=== PATIENT | male | born 1975 | race Caucasian/White ===

== ENCOUNTER 2020-03-30 23:50 | Inpatient (IN) | payer BC, MEDICAID ==
[~2020-03-30] VITALS: Ht 175.3 cm; Wt 84.4 kg
--- NOTE | 2020-03-31 00:20 | NUR ---
Dr. Terrazas at bedside for MSE.
--- NOTE | 2020-03-31 00:52 | NUR ---
Xray at bedside.
[2020-03-31 00:53] LABS: BASOPHILS # (AUTO) 0.1 K/uL (0.0-8.0); BASOPHILS % (AUTO) 0.8 % (0.0-2.0); EOSINOPHILS # (AUTO) 0.1 K/uL (0.0-0.7); HEMATOCRIT 40.1 % (36.7-47.1); HEMOGLOBIN 13.2 g/dL (12.5-16.3); LYMPHOCYTES # (AUTO) 2.5 K/uL (20.0-40.0); LYMPHOCYTES % (AUTO) 27.2 % (20.5-51.5); MEAN CORPUSCULAR HGB CONC 33 g/dL (32.5-36.3); MEAN CORPUSCULAR VOLUME 82.4 fL (73.0-96.2); MONOCYTES # (AUTO) 1.3 K/uL (2.0-10.0); MONOCYTES % (AUTO) 14.4 % (0.0-11.0); NEUTROPHILS # (AUTO) 5.2 K/uL (1.8-8.9); NEUTROPHILS % (AUTO) 56.6 % (38.5-71.5); PLATELET COUNT (AUTO) 186 K/uL (152-348); RED BLOOD CELL COUNT(AUTO) 4.87 MIL/uL (4.06-5.63); WHITE BLOOD COUNT (AUTO) 9.2 K/uL (3.6-10.2)
[2020-03-31 00:56] LABS: CREATININE 1.5 mg/dL (0.6-1.3); POTASSIUM 2.9 mmol/L (3.5-5.1)
[2020-03-31 01:09] LABS: BILIRUBIN,DIRECT 0.8 mg/dL (0.0-0.2); BILIRUBIN,TOTAL 1.5 mg/dL (0.2-1.0); TOTAL PROTEIN, SERUM 6.7 g/dL (6.4-8.2)
[2020-03-31] MEDS ORDERED: BUME2TAB7 PO (01:10)
[2020-03-31] MEDS ORDERED: APIX5TAB PO (01:10)
[2020-03-31] MEDS ORDERED: METO5TAB7 PO (01:10)
[2020-03-31] MEDS ORDERED: EMTR1TAB13 PO (01:10)
[2020-03-31] MEDS ORDERED: potassium PO (01:10)
[2020-03-31] MEDS ORDERED: DOLU50TA PO (01:10)
[2020-03-31] MEDS ORDERED: LISI2.5T2 PO (01:10)
[2020-03-31] MEDS ORDERED: FUROSEMIDE 40 MG/4 ML VIAL IV ONE ×2 (01:30→08:00)
[2020-03-31] MEDS ORDERED: ASPIRIN 325 MG TABLET PO ONE (01:30)
[2020-03-31] MEDS ORDERED: FUROSEMIDE 40 MG/4 ML VIAL ONE (01:37)
[2020-03-31] MEDS ORDERED: ASPIRIN 325 MG TABLET ONE (01:37)
[2020-03-31] MEDS ORDERED: CEFTRIAXONE /D5W 50ML IVPB **ER PYXIS IV ONE (01:44)
[2020-03-31] MEDS ORDERED: CEFTRIAXONE 1 G in IV DEXTROSE 5% 50 ML IV ONE (01:45)
[2020-03-31] MEDS ORDERED: AZITHROMYCIN 500MG/ D5W 250ML IVPB **ER PYXIS ONLY IV ONE (01:45)
[2020-03-31] MEDS ORDERED: AZITHROMYCIN IV 500 MG in IV DEXTROSE 5% 250 ML IV ONE (01:45)
[2020-03-31] MEDS ORDERED: MORPHINE SULFATE 4 MG/1 ML DISP.SYRIN IV ONE (02:15)
[2020-03-31] MEDS ORDERED: POTASSIUM CHLORIDE 20 MEQ TAB.PRT.SR PO ONE ×2 (02:15→17:00)
[2020-03-31] MEDS ORDERED: MAGNESIUM SULFATE/D5W 100 ML IV SCH (02:15)
--- NOTE | 2020-03-31 02:59 | NUR ---
Called [facility] to page Dayanna Napier NP.
--- NOTE | 2020-03-31 03:04 | NUR ---
Dr. Terrazas on panel call with Dayanna Napier. Patient accepted for admission to [facility], diagnosis: CHF exacerbation.
[2020-03-31] MEDS ORDERED: Z GUARD REMEDY PASTE 57 GM TUBE TOP PRN (03:15)
[2020-03-31] MEDS ORDERED: MAGNESIUM HYDROXIDE 30 ML LIQUID UDC PO PRN (03:15)
[2020-03-31] MEDS ORDERED: ACETAMINOPHEN 325 MG TABLET PO PRN (03:15)
[2020-03-31] MEDS ORDERED: ONDANSETRON 4 MG/2 ML VIAL IV PRN (03:15)
--- NOTE | 2020-03-31 03:56 | NUR ---
Report given to Ira SYKES Tele.
--- NOTE | 2020-03-31 04:43 | NUR ---
Received pt from ER via wheel chair. Pt can ambulate WNL. AOx4, no acute distress noted, on RA with tele monitor placed NSR.
[2020-03-31 04:57] VITALS: BP 101/83
--- NOTE | 2020-03-31 06:53 | NUR ---
End of Shift: Patient slept intermittently throughout the night with episodes of coughing. Patient needs were met and kept comfortable. Bed is low & locked, side rails are up x2, call light within reach. Will endorse to the AM shift nurse.
[2020-03-31 08:07] VITALS: BP 102/81
[2020-03-31] MEDS: LISINOPRIL 5 MG TABLET PO SCH (08:49)
[2020-03-31] MEDS ORDERED: Emtricitabine/Tenofov Alafenam (Descovy 200-25 mg Tablet PO SCH (09:00)
[2020-03-31] MEDS: APIXABAN 2.5 MG TABLET PO SCH ×2 (09:01→21:08)
[2020-03-31 09:22] LABS: ETHANOL < 3 MG/DL (0-0)
[2020-03-31 09:29] LABS: ACETAMINOPHEN < 2.0 ug/mL (10-30)
[2020-03-31 11:13] VITALS: BP 92/70
--- NOTE | 2020-03-31 14:00 | NUR ---
PER PHARMACY PATIENTS HIV MEDS ARE NON FORMULARY SO I SPOKE WITH THE PATIENT TO SEE IF HE WAS ABLE TO BRING HIS OWN MEDS BUT HE STATED THAT HE LIVES ALONE AND NOT ABLE AND ALSO THAT HIS MEDS ARE LOCKED UP IN THE SAFE AND NO ONE IS ABLE TO GET IT PHARMACIST KATIE AND DR STEVENSON NOTIFIED WITH NO NEW ORDERS AT THIS TIME.
--- NOTE | 2020-03-31 14:30 | NUR ---
PATIENT COMPLAINING OF SEVERE COUGH EPISODES STATED HURTS HIM IN THE BACK WHEN HE COUGHS SO I CALLED DR VAZQUEZ SPOKE WITH HIM WITH ORDERS FOR ROUTINE TESSALON PEARLS AND NOTED.
[2020-03-31] MEDS ORDERED: BENZONATATE 100 MG CAPSULE PO PRN (14:45)
[2020-03-31 15:13] VITALS: BP 105/77
--- NOTE | 2020-03-31 15:58 | NUR ---
ECHO PER MID LEVEL PRACTITIONER IS 10-20 PERCENT EF CALLED THE [facility] SPOKE WITH TRIPP LEFT A MESSAGE FOR DR DEMPSEY AWAITING FOR RETURN CALL
--- NOTE | 2020-03-31 16:12 | NUR ---
DR DEMPSEY RETURNED CALL AND STATED THAT HE IS AWARE THAT ECHO ON THIS PATIENT IS 10-15 PERCENT EF WITH NO NEW ORDERS AT THIS TIME.
--- NOTE | 2020-03-31 18:00 | NUR ---
RESTING IN BED COUGHING SIGNIFICANTLY SUBSIDING TELE REMAINS TACHY AT THIS TIME WILL CONTINUE TO OBSERVE.
--- NOTE | 2020-03-31 20:00 | NUR ---
Received pt in bed, asleep, easily arousable to name, able to make needs known. No s/s of respiratory distress, no pain or discomfort reported. IV access on right forearm intact and patent. On oxygen at 1LPM via NC saturating at 99%. Safety measures initiated, call bel within reach, will continue to monitor.
[2020-03-31 20:04] VITALS: BP 103/77
[2020-03-31] MEDS: FUROSEMIDE 40 MG/4 ML VIAL IV SCH (21:06)
[2020-03-31] MEDS: BENZONATATE 100 MG CAPSULE PO SCH (21:06)
[2020-04-01 00:15] VITALS: BP 97/69
[2020-04-01 04:15] VITALS: BP 12/75
[2020-04-01] MEDS: BENZONATATE 100 MG CAPSULE PO SCH ×3 (05:59→21:37)
--- NOTE | 2020-04-01 06:21 | NUR ---
Pt slept through the night, no s/s of acute respiratory distress, no pain or discomfort noted. due medications given and tolerated well. safety measures in place. will endorse to incoming nurse.
--- NOTE | 2020-04-01 06:22 | NUR ---
Sinus rhythm with PVC's on tele at 96/min.
[2020-04-01 06:30] LABS: BASOPHILS # (AUTO) 0.1 K/uL (0.0-8.0); BASOPHILS % (AUTO) 0.8 % (0.0-2.0); EOSINOPHILS # (AUTO) 0.4 K/uL (0.0-0.7); EOSINOPHILS % (AUTO) 4.9 % (0.0-7.0); HEMATOCRIT 42.2 % (36.7-47.1); HEMOGLOBIN 13.7 g/dL (12.5-16.3); LYMPHOCYTES # (AUTO) 2.1 K/uL (20.0-40.0); LYMPHOCYTES % (AUTO) 29.1 % (20.5-51.5); MEAN CORPUSCULAR HEMOGLOBIN 27.2 uug (23.8-33.4); MEAN CORPUSCULAR HGB CONC 33 g/dL (32.5-36.3); MEAN CORPUSCULAR VOLUME 83.7 fL (73.0-96.2); MONOCYTES % (AUTO) 13.6 % (0.0-11.0); NEUTROPHILS # (AUTO) 3.8 K/uL (1.8-8.9); NEUTROPHILS % (AUTO) 51.6 % (38.5-71.5); PLATELET COUNT (AUTO) 193 K/uL (152-348); RED BLOOD CELL COUNT(AUTO) 5.04 MIL/uL (4.06-5.63); WHITE BLOOD COUNT (AUTO) 7.3 K/uL (3.6-10.2)
[2020-04-01 06:59] LABS: BILIRUBIN,TOTAL 1.3 mg/dL (0.2-1.0); CREATININE 1.7 mg/dL (0.6-1.3); MAGNESIUM 2.2 mg/dL (1.8-2.4); PHOSPHOROUS 3.8 mg/dL (2.5-4.9); POTASSIUM 3.3 mmol/L (3.5-5.1); TOTAL PROTEIN, SERUM 6.7 g/dL (6.4-8.2)
--- NOTE | 2020-04-01 07:20 | NUR ---
PATIENT RECEIVED IN BED WITH EYES CLOSED AND WITH NO APPARENT DISTRESS. PATIENT ON 1L O2 VIA NC WITH NO SOB AND NO COUGH AT THIS TIME. REMAIN ON TELEMETRY WITH [facility]. CALL LIGHTS AND PERSONAL BELONGINGS ARE WITHIN EASY REACH. WILL CONTINUE TO OBSERVE AND PROVIDE COMFORT.
[2020-04-01] MEDS: FUROSEMIDE 40 MG/4 ML VIAL IV SCH ×2 (08:28→20:29)
[2020-04-01] MEDS: LISINOPRIL 5 MG TABLET PO SCH (08:29)
[2020-04-01] MEDS: APIXABAN 2.5 MG TABLET PO SCH ×2 (08:30→20:30)
[2020-04-01] MEDS ORDERED: POTASSIUM CHLORIDE 20 MEQ TAB.PRT.SR PO ONE (10:30)
--- NOTE | 2020-04-01 11:07 | NUR ---
POTASSIUM LEVEL IS 3.3 REVIEWED BY BRII MORAN RADIO DIVISION OFFICER WITH NEW ORDERS AND NOTED
[2020-04-01 12:00] VITALS: BP 94/73
--- NOTE | 2020-04-01 12:09 | NUR ---
[facility] MEDICAL PROVIDER WAS HERE AT BEDSIDE AND DISCUSSED THE PLAN OF CARE WITH THE PATIENT WITH NO NEW ORDERS AT THIS TIME.
--- NOTE | 2020-04-01 15:35 | NUR ---
DR JERRY [employer] WEAP[employer] TECHNICIAN HERE AND SEEN PATIENT AWARE OF LOW BLOOD PRESSURE AND PATIENT IS ON PRINIVIL WITH PARAMETERS AND NOTED HE ALSO STATED NO NEW ORDERS FOR PATIENTS LOW EJECTION FRACTION
--- NOTE | 2020-04-01 15:41 | NUR ---
PATIENT INSTRUCTED ON NEED FOR URINE SAMPLE AND SPECIMEN CUP PROVIDED AND HE EXPRESSED UNDERSTANDING.
[2020-04-01 16:08] VITALS: BP 115/74
[2020-04-01 16:28] LABS: *AMPHETAMINE, URINE POSITIVE (NEGATIVE); *CANNABINOID, URINE NEGATIVE (NEGATIVE); *COCCAINE, URINE NEGATIVE (NEGATIVE); *OPIATE, URINE POSITIVE (NEGATIVE); *PHENCYCLIDINE SCREEN,URINE NEGATIVE (NEGATIVE)
[2020-04-01] MEDS: HYDROCODONE/APAP 5-325MG TABLET PO PRN ×2 (17:20→21:37)
--- NOTE | 2020-04-01 18:37 | NUR ---
PATIENT COMPLAINED OF LEFT RIB PAIN WHICH IS CONSISTENT WITH HIS PAIN WHEN HE COUGHS. CURRENTLY ON TESSALON PEARLS. NORCO GIVEN FOR PAIN AND EFFECTIVE. PATIENT IS RESTING AT THIS TIME.
[2020-04-01 20:00] VITALS: BP 105/77
[2020-04-01 20:03] VITALS: BP 106/79
--- NOTE | 2020-04-01 23:00 | NUR ---
Pt seen by Seun SALEH; needs attended; c/o pain [place] given.
[2020-04-02] VITALS: BP 108/81
[2020-04-02 04:28] VITALS: BP 106/79
[2020-04-02] MEDS: BENZONATATE 100 MG CAPSULE PO SCH ×3 (05:47→21:10)
[2020-04-02] MEDS: HYDROCODONE/APAP 5-325MG TABLET PO PRN (05:48)
--- NOTE | 2020-04-02 05:57 | NUR ---
pt rested well in between care; no acute distressasked for pain meds and gave e [place] but eventually refused;
--- NOTE | 2020-04-02 06:01 | NUR ---
unable to weigh bed scale not working; standing scale not working.
[2020-04-02 06:27] LABS: BASOPHILS % (AUTO) 0.8 % (0.0-2.0); EOSINOPHILS # (AUTO) 0.4 K/uL (0.0-0.7); EOSINOPHILS % (AUTO) 6.8 % (0.0-7.0); HEMATOCRIT 46.9 % (36.7-47.1); HEMOGLOBIN 15.6 g/dL (12.5-16.3); LYMPHOCYTES # (AUTO) 1.9 K/uL (20.0-40.0); LYMPHOCYTES % (AUTO) 30.4 % (20.5-51.5); MEAN CORPUSCULAR HEMOGLOBIN 27.5 uug (23.8-33.4); MEAN CORPUSCULAR HGB CONC 33 g/dL (32.5-36.3); MONOCYTES # (AUTO) 0.9 K/uL (2.0-10.0); MONOCYTES % (AUTO) 14.3 % (0.0-11.0); NEUTROPHILS % (AUTO) 47.7 % (38.5-71.5); PLATELET COUNT (AUTO) 233 K/uL (152-348); RED BLOOD CELL COUNT(AUTO) 5.65 MIL/uL (4.06-5.63); WHITE BLOOD COUNT (AUTO) 6.3 K/uL (3.6-10.2)
[2020-04-02 07:05] LABS: CREATININE 1.7 mg/dL (0.6-1.3); MAGNESIUM 2.4 mg/dL (1.8-2.4); PHOSPHOROUS 4.1 mg/dL (2.5-4.9); POTASSIUM 3.9 mmol/L (3.5-5.1)
[2020-04-02] MEDS: MORPHINE SULFATE 2 MG/1 ML DISP.SYRIN IV PRN (08:46)
[2020-04-02] MEDS: LISINOPRIL 5 MG TABLET PO SCH (08:50)
[2020-04-02] MEDS: APIXABAN 2.5 MG TABLET PO SCH ×2 (08:52→20:48)
--- NOTE | 2020-04-02 14:00 | NUR ---
PATIENT IS C/O SLIGHT SOB. O2 ADMINISTERED AT 2L VIA NC.
[2020-04-02 16:29] VITALS: BP 95/66
--- NOTE | 2020-04-02 16:30 | NUR ---
PATIENT RESTING IN BED WITH EYES CLOSED. DENIES CHEST PAIN AND O2 SAT 97% AT 2L VIA NC. SR ON MONITOR. WILL CONTINUE TO OBSERVE.
[2020-04-02 20:00] VITALS: BP 99/75
[2020-04-03] VITALS: BP 98/75
[2020-04-03 03:06] LABS: *BASOS 1 % (Not Estab.); *BASOS,ABSOLUTE 0.1 x10E3/uL (0.0-0.2); *EOS 6 % (Not Estab.); *EOS ABSOLUTE 0.4 x10E3/uL (0.0-0.4); *HCT 45.8 % (37.5-51.0); *HGB 15.1 g/dL (13.0-17.7); *IMMATURE GRANULOCYTES 1 % (Not Estab.); *LYMPHOCYTES 33 % (Not Estab.); *LYMPHOCYTES ABSOLUTE 2.2 x10E3/uL (0.7-3.1); *MCH 27.1 pg (26.6-33.0); *MCV 82 fL (79-97); *MONOCYTES 15 % (Not Estab.); *NEUTROPHILS 44 % (Not Estab.); *PLT 255 x10E3/uL (150-450); *RBC 5.57 x10E6/uL (4.14-5.80); *RDW 18.4 % (11.6-15.4); *WBC 6.6 x10E3/uL (3.4-10.8)
[2020-04-03 04:24] VITALS: BP 101/80
[2020-04-03] MEDS: BENZONATATE 100 MG CAPSULE PO SCH ×2 (05:45→08:43)
[2020-04-03] MEDS: MORPHINE SULFATE 2 MG/1 ML DISP.SYRIN IV PRN (06:24)
--- NOTE | 2020-04-03 06:50 | NUR ---
Pt stable throughout the shift. On 2L NC saturating at 97%. Pt c/o of slight chest pain, PRN 1mg morphine was given. Will continue to monitor. Safety measures in place. Call light within reach. Will endorse to oncoming nurse.
--- NOTE | 2020-04-03 08:00 | NUR ---
AWAKE ALERT AND VERBALLY RESPONSIVE NITHIN PAIN OR SOB SATURATING 98% RA. SR ON MONITOR
[2020-04-03 08:41] LABS: BASOPHILS % (AUTO) 0.7 % (0.0-2.0); EOSINOPHILS # (AUTO) 0.3 K/uL (0.0-0.7); HEMATOCRIT 44.4 % (36.7-47.1); HEMOGLOBIN 14.9 g/dL (12.5-16.3); LYMPHOCYTES # (AUTO) 1.9 K/uL (20.0-40.0); LYMPHOCYTES % (AUTO) 28.6 % (20.5-51.5); MEAN CORPUSCULAR HEMOGLOBIN 27.9 uug (23.8-33.4); MEAN CORPUSCULAR HGB CONC 34 g/dL (32.5-36.3); MEAN CORPUSCULAR VOLUME 83.3 fL (73.0-96.2); MONOCYTES # (AUTO) 0.9 K/uL (2.0-10.0); MONOCYTES % (AUTO) 13.7 % (0.0-11.0); NEUTROPHILS # (AUTO) 3.5 K/uL (1.8-8.9); PLATELET COUNT (AUTO) 280 K/uL (152-348); RED BLOOD CELL COUNT(AUTO) 5.33 MIL/uL (4.06-5.63); WHITE BLOOD COUNT (AUTO) 6.7 K/uL (3.6-10.2)
[2020-04-03] MEDS: LISINOPRIL 5 MG TABLET PO SCH (08:42)
[2020-04-03 08:43] LABS: CREATININE 1.4 mg/dL (0.6-1.3); PHOSPHOROUS 3.3 mg/dL (2.5-4.9); POTASSIUM 3.5 mmol/L (3.5-5.1)
[2020-04-03] MEDS: APIXABAN 2.5 MG TABLET PO SCH (08:45)
[2020-04-03 08:48] LABS: MAGNESIUM 2.3 mg/dL (1.8-2.4)
[2020-04-03 11:56] VITALS: BP 101/80
--- NOTE | 2020-04-03 12:00 | NUR ---
SEEN BY HOSPITALIST AND RESIDENCE LIFE COORDINATOR PLAN DISCHARGE TODAY PENDING LIFE VEST DELIVERY FOR HOME
[2020-04-03 13:06] LABS: *HELPER T-LYMPH MARKR(CD4)ABSO 926 /uL (359-1519); *HELPER T-LYNPH MARKER CD4)% 42.1 % (30.8-58.5)
--- NOTE | 2020-04-03 13:10 | NUR ---
Account Assistant note: This SW met with the patient today. Patient is a 45 year old male, alert, oriented x 4, receptive to meeting with this SW. Patient was admitted to the hospital on 03/31 with dx of CHF. Patient has a history of meth use, and per patient's medical records, patient tested positive for meth during this hospitalization. During this interview with this SW, patient denied current use of meth, and stated that his drug use was a long time ago. Patient lives alone in an apartment, [address] [place] [address]. Patient is independent with ADL's. Patient is currently unemployed, and stated that his family helps him out financially. Patient has [employer]. SW explored patient's psychosocial needs, and patient stated that he would like information on cardiologists. SW explained to the patient that based on his insurance, patient would need to see his PCP first, who would then submit an authorization request to his insurance who would refer him to cafeteria associate. Patient expressed understanding. Patient stated he did not need any other supportive resources at this time, and that he was waiting for his life vest so he can be discharged home. At this time, there are no additional SS interventions needed. SW will remain available to patient, as needed.
--- NOTE | 2020-04-03 16:34 | NUR ---
discharged home stable with home meds list and follow-up instruction with printing machine mechanic
== END 2020-04-03 16:35 | disposition home or self-care (01) | DRG 194 ==
LOC: ER 23:58 → TELE3 03-31 03:00
PROVIDERS: ADMIT Internal Medicine; ATTEND Registered Nurse
DX: I13.0 Hypertensive heart and chronic kidney disease with heart failure and stage 1 through stage 4 chronic kidney disease, or unspecified chronic kidney disease (principal); N17.0 Acute kidney failure with tubular necrosis; I21.A1 Myocardial infarction type 2; J96.01 Acute respiratory failure with hypoxia; Z59.0 Homelessness; I42.0 Dilated cardiomyopathy; E87.6 Hypokalemia; I25.10 Atherosclerotic heart disease of native coronary artery without angina pectoris; I48.0 Paroxysmal atrial fibrillation; Z85.72 Personal history of non-Hodgkin lymphomas; Z79.899 Other long term (current) drug therapy; N18.9 Chronic kidney disease, unspecified; Z20.822 Contact with and (suspected) exposure to COVID-19; K57.92 Diverticulitis of intestine, part unspecified, without perforation or abscess without bleeding; F15.10 Other stimulant abuse, uncomplicated; I50.23 Acute on chronic systolic (congestive) heart failure; I47.2 Ventricular tachycardia
CPT/HCPCS: 36415; 70030-TC; 71045; 83735; 84100; 85025; 85730; 86361; 93005; 93307; A4663; G0378; G0480; J0456; J0696; J1940; J2270; J3475